=== PATIENT | male | born 1960 | race Caucasian/White ===

== ENCOUNTER 2020-09-18 07:39 | Day surgery (SDC) | payer OTHER, SELFPAY ==
[~2020-09-18] VITALS: Ht 162.6 cm; Wt 82.6 kg
[2020-09-18] MEDS ORDERED: fentaNYL CITRATE/PF 100 MCG/2 ML AMP ONE (08:35)
[2020-09-18] MEDS ORDERED: SIMETHICONE 40 MG/0.6 ML ML ONE (08:35)
[2020-09-18] MEDS: MIDAZOLAM HCL 5 MG/5 ML VIAL ONE ×2 (08:41→08:45)
[2020-09-18 09:10] VITALS: BP_SYST 120
--- NOTE | 2020-09-18 22:20 | NUR ---
I DO NOT UNDERSTAND WHY OR DEPARTMENT FORGET TO DISCHARGE PATIENT MOST OF THE TIME [facility] HAS TO DC PATIENT TO [facility] THIS IS A DIFFERENT DEPARTMENT WHY WE HAVE TO DC OR PATIENTS THIS PATIENT WAS DC IN THE MORNING AT 0940
== END 2020-09-18 09:40 | disposition home or self-care (01) ==
LOC: SMU 07:39 → SDS 07:39
PROVIDERS: ATTEND Internal Medicine
DX: Z12.11 Encounter for screening for malignant neoplasm of colon (principal); I10 Essential (primary) hypertension; Z86.010 Personal history of colon polyps; Z20.828 Contact with and (suspected) exposure to other viral communicable diseases
CPT/HCPCS: 45378; 99152; G0378; J2250; J3010; U0003